=== PATIENT | female | born 1960 | race Caucasian/White ===

== ENCOUNTER 2022-12-10 21:26 | Emergency (ER) | payer OTHER ==
[2022-12-10 21:33] VITALS: BP 133/82; PULSE 90; RESP 16; TEMP 98.2; BMI 21.4
[2022-12-10 22:17] LABS: EPI CELLS 1 /uL (0-25.1); HYALINE CASTS 3 /uL (0-3.1); PH,URINE 7.5 (5.0-8.0); URINE APPEARANCE CLEAR; URINE BACTERIA 1662 /uL (0-1359); URINE BILIRUBIN NEGATIVE (NEGATIVE); URINE COLOR RED; URINE GLUCOSE (UA) NEGATIVE (NEGATIVE); URINE KETONE NEGATIVE (NEGATIVE); URINE LEUK ESTERASE 3+ (NEGATIVE); URINE NITRITE NEGATIVE (NEGATIVE); URINE PROTEIN 1+ (NEGATIVE); URINE RBC 127 /uL (0-23.9); URINE UROBILINOGEN 0.2 mg/dL (0.2-1.0); URINE WBC 856 /uL (0-25.8)
[2022-12-10] MEDS ORDERED: ACETAMINOPHEN 1000 MG/100 ML BAG IVPB ONE (22:57)
[2022-12-10] MEDS ORDERED: ACETAMINOPHEN INJECTION 100 ML IVPB ONE (23:17)
[2022-12-10] MEDS ORDERED: CEFTRIAXONE 1 GM/50 ML BAG ONE (23:17)
[2022-12-10] MEDS ORDERED: PHENAZOPYRIDINE HCL 100 MG TABLET (FP) PO ONE (23:20)
[2022-12-10] MEDS ORDERED: CEPHALEXIN MONOHYDRATE 500 MG CAPSULE (UD) PO ONE (23:20)
[2022-12-10] MEDS ORDERED: CEFTRIAXONE 1 GM in DEXTROSE 5%-WATER - 50 ML IVPB ONE (23:30)
[2022-12-10] MEDS ORDERED: CEPHALEXIN MONOHYDRATE 500 MG CAPSULE (UD) ONE (23:34)
[2022-12-10] MEDS ORDERED: PHENAZOPYRIDINE HCL 100 MG TABLET (FP) ONE (23:34)
[2022-12-10] MEDS ORDERED: ONDANSETRON *ODT* 4 MG TABLET SL ONE (23:38)
[2022-12-10] MEDS ORDERED: ONDANSETRON 4 MG TABLET PO ONE (23:39)
[2022-12-10] MEDS ORDERED: ONDANSETRON *ODT* 4 MG TABLET ONE (23:39)
== END 2022-12-10 23:46 | disposition home or self-care (01) ==
LOC: JER 21:26
DX: N30.91 Cystitis, unspecified with hematuria (principal)
CPT/HCPCS: 81003; 87086; 87186; 99283-25; Q0162